=== PATIENT | male | born 1985 | race Caucasian/White ===

== ENCOUNTER → 2018-11-09 05:03 | Outpatient (CLI) | payer OTHER, SELFPAY ==
[2018-11-08 11:54] VITALS: BMI 31.8
[2018-11-09 05:26] LABS: Absolute Lymphocyte Count 1.56 X10^3/ul (0.83-4.51); Absolute Neutrophil Count 7.9 X10^3/uL (2.0-7.7); Basophil# 0.02 X10^3/uL; Basophil% 0.2 % (0-1); Hematocrit 45.6 % (40-54); Hemoglobin 15.4 g/dl (13.0-16.5); Lymphocyte # 1.56 X10^3/ul (4.0); Lymphocyte % 14.8 % (19-41); Mean Corp Hgb Conc 33.8 g/gl (32-36); Mean Corpuscular Hgb 30.3 pg (27.0-32.0); Mean Corpuscular Volume 89.6 fL (80-94); Monocyte# 1.01 X10^3/uL; Monocyte% 9.6 % (0-10); Neutrophil # 7.87 X10^3/uL (2.7-7.7); Neutrophil % 74.9 % (47-70); Platelet Count 239 K/mm3 (150-450); RBC Distribution Width CV 12.6 % (11.6-14.6); RBC Distribution Width SD 40.9 fl (35.1-43.9); Red Blood Count 5.09 M/mm3 (4.6-6.2); White Blood Count 10.5 K/mm3 (4.4-11.0)
[2018-11-09 05:27] LABS: POSITIVE COUNT NO; POSITIVE DIFFERENTIAL NO; POSITIVE MORPHOLOGY NO
[2018-11-09 05:28] LABS: Erythrocyte Sedimentation Rate 9 mm/hr (0-15)
== END ==
PROVIDERS: Referring Provider Nurse Practitioner; Visit Provider Nurse Practitioner
DX: L03.011 Cellulitis of right finger (principal)
CPT/HCPCS: 85025; 85652